=== PATIENT | male | born 1985 | race Caucasian/White ===

== ENCOUNTER 2016-08-12 07:08 | Emergency (ER) | payer OTHER ==
[2016-08-12 08:32] LABS: HEMOGLOBIN 15.6 gm/dl (14.0-17.5); RED BLOOD COUNT 5.49 M/UL (4.20-5.50); WHITE BLOOD COUNT 8.8 K/UL (4.5-11.0)
[2016-08-12 08:46] LABS: BUN/CREATININE RATIO 16 (0-10)
== END 2016-08-12 11:05 | disposition home or self-care (01) ==
LOC: ER1 07:08
PROVIDERS: Emergency Medicine
DX: S30.1XXA Contusion of abdominal wall, initial encounter (principal); S20.212A Contusion of left front wall of thorax, initial encounter; V89.9XXA Person injured in unspecified vehicle accident, initial encounter; Y93.89 Activity, other specified; Y92.410 Unspecified street and highway as the place of occurrence of the external cause
CPT/HCPCS: 36415; 71260; 80053; 81001; 85025; 96360; 99284; J7030; J7050; Q9962